=== PATIENT | female | born 1970 | race Caucasian/White ===

== ENCOUNTER 2017-09-04 21:04 | Emergency (ER) | payer SELFPAY ==
[~2017-09-04] VITALS: Ht 170.2 cm; Wt 84.4 kg
[2017-09-04 21:20] VITALS: BP 152/97
[2017-09-04 22:10] LABS: Basophils # (auto) 0 uL; Basophils % (auto) 0.3 % (0.0-2.0); Eosinophils # (auto) 0.1 uL; Eosinophils % (auto) 1.4 % (0.0-7.0); Hematocrit 44.4 % (36.0-46.0); Hemoglobin 15.4 g/dL (12.2-16.2); Lymphocytes # (auto) 0.8 uL; Mean Corpuscular Hemoglobin 32.3 pg (28.0-32.0); Mean Corpuscular Hgb Conc. 34.7 g/dL (32.0-36.0); Mean Corpuscular Volume 93.3 fL (80.0-100.0); Monocytes # (auto) 0.4 uL; Monocytes % (auto) 7.5 % (0.0-12.0); Neutrophils # (auto) 4.6 uL; Neutrophils % (auto) 76.8 % (37.0-80.0); Nucleated Red Blood Cells % 0.1 %; Platelet Count (auto) 189 10^3/uL (140-450); Red Blood Cells 4.76 10^6/uL (4.0-5.20); Red Cell Distribution Width 12.6 % (11.8-14.3)
[2017-09-04 22:21] LABS: Urine Amorphous Crystal FEW /hpf (None Seen); Urine Bacteria FEW /hpf (None Seen); Urine Blood 1+ /uL (Negative); Urine Mucus FEW (None Seen); Urine Specific Gravity 1.027 (1.001-1.035); Urine WBC 4 /hpf (0 - 5)
[2017-09-04 22:26] LABS: Albumin 3.4 g/dL (3.4-5.0); BUN/Creatinine Ratio 15.6; Potassium 3.7 mmol/L (3.5-5.1)
[2017-09-04 22:29] LABS: Bilirubin, Total 1.7 mg/dL (0.2-1.0); Total Protein 7.5 g/dL (6.4-8.2)
[2017-09-04 22:49] LABS: Partial Thromboplastin Time 28.8 sec (23.78-33.04); Prothrombin Time 10.7 sec (9.27-12.13)
== END 2017-09-05 01:56 | disposition left against medical advice (07) ==
LOC: ER 21:04
DX: R10.84 Generalized abdominal pain (principal); R11.2 Nausea with vomiting, unspecified; R19.7 Diarrhea, unspecified; Z53.21 Procedure and treatment not carried out due to patient leaving prior to being seen by health care provider
CPT/HCPCS: 36415; 74176; 80053; 81001; 81025; 82150; 83690; 85025; 85610; 85730

== ENCOUNTER 2017-09-05 10:24 | Emergency (ER) | payer SELFPAY ==
[~2017-09-05] VITALS: Ht 170.2 cm; Wt 84.4 kg
[2017-09-05] MEDS ORDERED: diphenhdrAMINE HCL 50 MG/1 ML VL IV ONE (12:15)
[2017-09-05] MEDS ORDERED: DEXAMETHASONE SOD PHOS 4 MG/1ML SDV INJ IV ONE (12:15)
[2017-09-05 13:57] VITALS: BP 111/76
[2017-09-05] MEDS ORDERED: PANTOPRAZOLE 40 MG TAB PO ONE ×2 (14:00→14:01)
== END 2017-09-05 14:14 | disposition home or self-care (01) ==
LOC: ER 10:24
DX: K76.0 Fatty (change of) liver, not elsewhere classified (principal); R94.5 Abnormal results of liver function studies; L51.9 Erythema multiforme, unspecified; J45.909 Unspecified asthma, uncomplicated; Z90.49 Acquired absence of other specified parts of digestive tract
CPT/HCPCS: 96374; 96375; 99284; J1100; J1200